=== PATIENT | male | born 1985 | race Caucasian/White ===

== ENCOUNTER 2017-12-26 16:33 | Emergency (ER) | payer OTHER ==
[2017-12-26] MEDS ORDERED: PROPARACAINE 0.5% OPHTH DROPS 15 ML EACHEYE STA (17:36)
[2017-12-26] MEDS ORDERED: BALANCED SALT OPHTHALMIC SOL 120 ML BOTTLE EACHEYE STA (17:41)
--- NOTE | 2017-12-26 17:53 | ED Physician Documentation ---
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 He said some watering and has noticed some blistering of the sclera. [place] now with conjunctival swelling that came on acutely. Review of Systems Constitutional: denies: Fever Eyes: reports: Irritation. denies: Decreased vision Ears: denies: Ear pain Nose: denies: Rhinorrhea / runny nose, Congestion Respiratory: denies: Cough GI: denies: Vomiting Skin: denies: Rash Musculoskeletal: denies: Neck pain, Back pain, Extremity pain PD PAST MEDICAL HISTORY - Past Medical History Past Medical History: No - Past Surgical History Past Surgical History: Yes - Present Medications Home Medications: Ambulatory Orders Medication Instructions Recorded Confirmed No Known Home Medications [No 12/26/17 12/26/17 Known Home Medications] - Allergies Allergies/Adverse Reactions: Allergies Allergy/AdvReac Type Severity Reaction Status Date / Time No Known Drug Allergies Allergy Verified 12/26/17 16:44 - Social History Does the pt smoke?: No Smoking Status: Never smoker Does the pt drink ETOH?: Yes Does the pt have substance abuse?: No - Immunizations Immunizations are current?: Yes PD ED PE NORMAL - Vitals Vital signs reviewed: Yes (normal ) - General General: No acute distress, Well developed/nourished - HEENT HEENT: Atraumatic, PERRL, EOMI, Other (There is markec conjunctival swelling OS consistent with acute allergic conjunctivitis and this is less present on the right. ) - Neck Neck: Supple, no meningeal sign, No bony TTP - Respiratory Respiratory: No respiratory distress - Derm Derm: Normal color, Warm and dry, No rash - Extremities Extremities: No deformity, No edema - Neuro Neuro: No motor deficit, No sensory deficit Eye Opening: Spontaneous Motor: Obeys Commands Verbal: Oriented GCS Score: 15 - Psych Psych: Normal mood, Normal affect Results - Vitals Vitals: Vital Signs - 24 hr 12/26/17 16:41 Temperature 36.5 C Heart Rate 63 Respiratory 18 Rate Blood Pressure 114/64 O2 Saturation 98 Oxygen O2 Source Room air PD MEDICAL DECISION MAKING - ED course Complexity details: considered differential, d/w patient, d/w family ED course: 32-year-old male with acute allergic conjunctivitis has marked swelling especially on the left side this is dramatic appearing for the patient and is come to the emergency department. His symptoms are somewhat better than they were initially and this happened quite rapidly when it did happen. All consistent with allergic conjunctivitis. Alcaine is instilled into his eyes and he is eyes are irrigated with a full bottle of ice cream. He has some improvement in his symptoms and some improvement in the swelling. The left eye is stained with foreseen there is no evidence of corneal abrasion. Departure - Departure Disposition: 01 Home, Self Care Clinical Impression: Acute allergic conjunctivitis of both eyes Condition: Stable Instructions: ED Allergic Conjunctivitis Follow-Up: [facility] Salcido [Provider Group]
[2017-12-26 17:58] VITALS: BP 127/80
== END 2017-12-26 18:00 | disposition home or self-care (01) ==
LOC: ED 16:33
DX: H10.13 Acute atopic conjunctivitis, bilateral (principal)
CPT/HCPCS: 99283; A9270; J3490

== ENCOUNTER 2018-10-13 21:13 | Emergency (ER) | payer OTHER ==
[2018-10-13 21:25] VITALS: BP 128/62
--- NOTE | 2018-10-13 22:57 | ED Physician Documentation ---
PD HPI HEAD INJURY - Stated complaint Stated Complaint: LIP LAC - Chief complaint Chief Complaint: Laceration - History obtained from History obtained from: Patient - History of Present Illness Mechanism of head injury: Laceration (32-year-old gentleman who is up-to-date on tetanus got a lip laceration on a spring from a broken machine at home just prior to arrival.) Review of Systems Constitutional: reports: Reviewed and negative Nose: reports: Reviewed and negative Cardiac: reports: Reviewed and negative PD PAST MEDICAL HISTORY - Past Surgical History Past Surgical History: Yes - Present Medications Home Medications: Ambulatory Orders Medication Instructions Recorded Confirmed No Known Home Medications 12/26/17 12/26/17 - Allergies Allergies/Adverse Reactions: Allergies Allergy/AdvReac Type Severity Reaction Status Date / Time No Known Drug Allergies Allergy Verified 10/13/18 21:25 - Social History Does the pt smoke?: No Smoking Status: Never smoker Does the pt drink ETOH?: Yes Does the pt have substance abuse?: No - Immunizations Immunizations are current?: Yes PD ED PE NORMAL - Vitals Vital signs reviewed: Yes - General General: Alert and oriented X 3, No acute distress - HEENT HEENT: Other (There is a 1 cm laceration of the right upper lip through the vermilion border) - Neck Neck: Supple, no meningeal sign, No bony TTP - Neuro Neuro: Alert and oriented X 3, Normal speech Results - Vitals Vitals: Vital Signs - 24 hr 10/13/18 21:20 Temperature 36.5 C Heart Rate 51 L Respiratory 16 Rate Blood Pressure 128/62 O2 Saturation 98 Oxygen O2 Source Room air Procedures - Laceration (location) Lip Length in cm: 1 Wound type: Linear, Curved Anesthesia: Lidocaine 1% with epi Wound Preparation: Irrigated copiously NS Skin layer closure: Prolene, Interrupted, Size #-0 - enter number (6-0), Sutures - enter # (4), Other (started with abimael border) Other: Patient tolerated well, No complications, Neurovascular intact, Tetanus UTD Complexity: Complex Departure - Departure Disposition: 01 Home, Self Care Clinical Impression: Lip laceration Qualifiers: Encounter type: initial encounter Qualified Code(s): S01.511A - Laceration without foreign body of lip, initial encounter Condition: Good Record reviewed to determine appropriate education?: Yes Instructions: ED Laceration Mouth Comments: Come back for any signs of infection which would include: Redness, swelling, drainage, increased pain, or fevers. Follow-up with your physician in 6 days for suture removal.
== END 2018-10-13 22:59 | disposition home or self-care (01) ==
LOC: ED 21:13
DX: S01.511A Laceration without foreign body of lip, initial encounter (principal); W45.8XXA Other foreign body or object entering through skin, initial encounter; Y92.009 Unspecified place in unspecified non-institutional (private) residence as the place of occurrence of the external cause
CPT/HCPCS: 12051; 99282; 99283

== ENCOUNTER 2019-06-21 12:20 | Outpatient (CLI) | payer OTHER ==
--- NOTE | 2019-06-22 04:43 | MRI Report ---
Reason: LOW BACK PAIN, PAIN IN HIP Procedure Date: 06/21/2019 Accession Number: [id number] / [id number] Procedure: MRI - Lumbar Spine W/O CPT Code: Final Report FULL RESULT: EXAM: MRI LUMBAR SPINE WITHOUT CONTRAST EXAM DATE: 06/21/2019 12:41 PM. CLINICAL HISTORY: LOW BACK PAIN, PAIN IN HIP. COMPARISON: None. TECHNIQUE: Multiplanar, multisequence T1-weighted and fluid-sensitive sequences of the lumbar spine from T12 to S1 without contrast. Other: None. FINDINGS: Spinal Canal: The conus terminates at T12-L1. The conus medullaris and cauda equina are unremarkable. Alignment: There is straightening of usual lumbar lordosis. Bone Marrow: Five [id number]-[id number] lumbar vertebral bodies are assumed. There is no evidence of acute fracture. Small Schmorl's nodes are visualized in the superior L3 and inferior L2 end plates with adjacent T1/T2 hyperintense diskogenic endplate change. A small L5 hemangioma is noted. Schmorl's nodes are visualized across the T11-T12 disk space. Disk Levels/Facets: T12-L1: Unremarkable. L1-L2: Unremarkable. L2-L3: Mild disk height loss and dessication are noted. No focal disk pathology is visualized. The facet joints are unremarkable. There is no significant central canal or neuroforaminal stenosis. L3-L4: Mild disk height loss and dessication are noted. There is a right extraforaminal disk protrusion measuring 16 x 5 mm in the axial plane. This contacts and displaces the exiting right L3 nerve root. The facet joints are unremarkable. There is no significant central canal or neuroforaminal stenosis. L4-L5: Moderate disk height loss and disk desiccation are noted. There is a diffuse disk bulge asymmetric to the left. Annular fissure and shallow disk osteophyte complex contact but do not displace the exiting left L4 nerve root. The facet joints are within normal limits. There is no significant central canal or neuroforaminal stenosis. L5-S1: Unremarkable. Musculature: Normal. No edema or fatty atrophy. Other: The partially visualized retroperitoneum is unremarkable. IMPRESSION: 1. Right extraforaminal disk extrusion at L3-L4 contacting and displacing the exiting right L3 nerve root. 2. Left foraminal annular fissure and shallow disk osteophyte complex contacts the exiting left L4 nerve root. 3. Mild to moderate degenerative disk changes at L2-L3. 4. No significant central canal stenosis. Comment: The following findings are so common in adults without low back pain that while we report their presence, they must be interpreted with caution and in the context of the clinical situation. (Reference Lexisk et al, Spine 2001) Prevalence of findings in patients without low back pain: Disk degeneration (any evidence): 92% Disk desiccation/T2 signal loss: 83% Disk height loss: 56% Disk bulge: 64% Disk protrusion: 32% Annular tear/high intensity zone: 38% RADIA
== END 2019-06-21 12:21 | disposition home or self-care (01) ==
LOC: DI 12:20
PROVIDERS: ATTEND Nurse Practitioner Family
DX: M51.36 Other intervertebral disc degeneration, lumbar region (principal); M51.26 Other intervertebral disc displacement, lumbar region
CPT/HCPCS: 72148

== ENCOUNTER 2021-06-27 11:20 | Emergency (ER) | payer BC, OTHER ==
[2021-06-27] MEDS ORDERED: ALBUTEROL 1 PUFF INH STA (14:31)
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
--- NOTE | 2021-06-27 15:31 | XRAY Report ---
PROCEDURE: Chest 1 View X-Ray INDICATIONS: chest pain TECHNIQUE: One view of the chest was acquired. COMPARISON: None FINDINGS: Surgical changes and devices: None. Lungs and pleura: No pleural effusions or pneumothorax. Mild patchy bilateral interstitial infiltrat es are seen. Mediastinum: Mediastinal contours appear normal. Heart size is normal. Bones and chest wall: No suspicious bony lesions. Overlying soft tissues appear unremarkable. IMPRESSION: Bilateral interstitial type infiltrates are seen. Please consider COVID pneumonia. The patient gives an additional history of hemoptysis. Please consider dedicated follow-up chest CT with contrast for further evaluation. Reviewed by: Blu Kirby MD on 06/27/2021 2:30 PM [facility] Approved by: Blu Kirby MD on 06/27/2021 2:30 PM [facility] Station ID: [id number]
[2021-06-27 15:52] VITALS: BP 115/66
== END 2021-06-27 15:52 | disposition home or self-care (01) ==
LOC: ED 11:20
DX: U07.1 COVID-19 (principal); J12.82 Pneumonia due to coronavirus disease 2019
CPT/HCPCS: 94640; 99284

== ENCOUNTER 2022-04-11 17:33 | Emergency (ER) | payer BC ==
[2022-04-11 17:41] VITALS: BP 113/52
[2022-04-11] MEDS ORDERED: oxyCODONE 5 MG TABLET PO STA (18:04)
[2022-04-11] MEDS ORDERED: oxyCODONE/ACET 5/325 Prepack 4 PO STA (18:04)
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
--- NOTE | 2022-04-11 18:16 | XRAY Report ---
PROCEDURE: Wrist 4 View RT INDICATIONS: Trauma TECHNIQUE: 4 views of the wrist were acquired. COMPARISON: None FINDINGS: Bones: No fractures or dislocations. No suspicious bony lesions. Scaphoid view: Scaphoid appears intact. Scapholunate interval is maintained. Soft tissues: No suspicious soft tissue calcifications. IMPRESSION: Right wrist without acute fracture or dislocation. If there is persistent clinical concern for a radiographically occult fracture, recommend immobiliza tion and repeat imaging in 10 to 14 days. Reviewed by: Fredy Agarwal MD on 04/11/2022 6:15 PM PDT Approved by: Fredy Agarwal MD on 04/11/2022 6:15 PM PDT Station ID: [id number]
== END 2022-04-11 18:44 | disposition home or self-care (01) ==
LOC: ED 17:33
DX: S63.501A Unspecified sprain of right wrist, initial encounter (principal); V29.9XXA Motorcycle rider (driver) (passenger) injured in unspecified traffic accident, initial encounter; Y93.55 Activity, bike riding
CPT/HCPCS: 73110; 99283; A9270